=== PATIENT | female | born 2000 | race Caucasian/White ===

== ENCOUNTER 2021-02-15 18:17 | Emergency (ER) | payer BC | END 2021-02-15 19:16 | disposition left against medical advice (07) | LOC: DL.ED 18:17 | DX: R05.9 Cough, unspecified (principal); Z53.21 Procedure and treatment not carried out due to patient leaving prior to being seen by health care provider ==

== ENCOUNTER 2021-10-30 14:54 | Emergency (ER) | payer BC ==
[2021-10-30] MEDS ORDERED: Ondansetron 4 MG Tab.DIS PO ONE (14:55)
[2021-10-30] MEDS ORDERED: Ondansetron 4 MG Tab.DIS ONE (16:23)
== END 2021-10-30 16:26 | disposition home or self-care (01) ==
LOC: DL.ED 14:54
DX: L55.1 Sunburn of second degree (principal); L55.0 Sunburn of first degree; F17.210 Nicotine dependence, cigarettes, uncomplicated; Z86.16 Personal history of COVID-19
CPT/HCPCS: 99282; A9270